=== PATIENT | female | born 1970 | race Asian ===

== ENCOUNTER → 2016-10-23 | Day surgery (SDC) | payer BC ==
[~2016-10-23] MED LIST: BACTRIM DS TABL1 TA1 PO; CLARITIN10 MG; FISH OIL 1,0001 CA2 PO; GLUCOSAMINE500 M1 PO; NORVASC10 MG PO; PYRIDIUM PO; SINGULAIR PO; ZYRTEC10 M1 PO
--- NOTE | ~2016-10-23 | OR ---
Unit #: [id number] #: [id number] Patient: AASHISH LAU [id number] [address] [place], [place] [address] [id number] O MR#: [id number] NAME: AASHISH LAU. ROOM: Date of Procedure: 10/23/2016 Admission Date: 10/23/2016 Surgeon: Aryan Freitas M.D. : 1970 Attending Physician: Aryan Freitas M.D. Primary Care Physician: Elzbieta Liu M.D. OPERATIVE REPORT PRIMARY CARE PHYSICIAN Elzbieta Liu M.D. PREOPERATIVE DIAGNOSES The patient has come for colorectal cancer screening. She has family history of colon cancer in her mother and two of her brothers. PROCEDURES PERFORMED Colonoscopy and polypectomy. POSTOPERATIVE DIAGNOSES 1. Single sessile polyp in the proximal descending colon. The latter was removed using snare polypectomy. The polyp was about 4 to 5 mm in size. 2. Rest of examination up to cecum and terminal ileum was normal. The quality of the prep was excellent. No additional polyps nor any diverticula or hemorrhoids were seen. RECOMMENDATIONS Follow up results of polyp histology and repeat colonoscopy in 5 years. SEDATION USED MAC. DESCRIPTION OF PROCEDURE Following detailed explanation of the potential risks and complications of a colonoscopy, namely perforation, bleeding, and complications related to sedation, the patient was brought to GI lab and laid in the left lateral decubitus position. A digital rectal examination was performed, which was normal. Lubricated tip of the Olympus video colonoscope was inserted through the anus and advanced under direct vision. The scope was advanced and passed up to sigmoid into descending colon. No diverticula were noticed in this area. The scope tip was then navigated all the way up to cecum with visualization of the ileocecal valve and the appendiceal orifice. Preparation was excellent with good visualization and photodocumentation was obtained. Last several inches of terminal ileum also visualized after intubation of the ileocecal valve and appeared normal. Successive segments of the colonic mucosa were examined upon withdrawal and appeared unremarkable except for a single sessile polyp in the proximal descending colon. The latter was about 4 to 5 mm in size. It was removed using snare polypectomy. The polyp was retrieved and sent for histology. No additional polyps were noted. The patient did not have any diverticulosis nor any hemorrhoids. The scope was then withdrawn. Unit #: [id number] #: [id number] Patient: AASHISH LAU The patient returned to recovery area. She tolerated the procedure without any postprocedure complications. Dictated by... Raisa Gallegos/mindy TD: 10/23/2016 23:13 JOB #: [id number] CC: Elzbieta Liu M.D. OPERATIVE REPORT Page 1 of 1 X Aryan Freitas MD X PROCEDURE OPERATIVE NOTE
== END | disposition home or self-care (01) ==
LOC: COPS 06:33
PROVIDERS: Internal Medicine Gastroenterology
PROC: 0DBM8ZX Excision of Descending Colon, Via Natural or Artificial Opening Endoscopic, Diagnostic (ICD-10-PCS; principal; 2016-10-23 08:00)
DX: Z12.11 Encounter for screening for malignant neoplasm of colon (principal); D12.4 Benign neoplasm of descending colon; Z80.0 Family history of malignant neoplasm of digestive organs; I10 Essential (primary) hypertension; Z79.899 Other long term (current) drug therapy; Z90.710 Acquired absence of both cervix and uterus
CPT/HCPCS: 88305

== ENCOUNTER → 2016-10-24 | Outpatient (CLI) | payer BC ==
--- NOTE | ~2016-10-24 | MY11 ---
[facility] A Service of [facility] RADIOLOGY TEXT RESULTS PATIENT: AASHISH LAU LOCATION: [facility] : [birth year] UNIT #: [id number] AGE: [address]: Elzbieta Liu MD SEX: F ORDER DR: [id number] [facility] [address]. [place], [place] [address] [id number] O MR#: [id number] Acc #: [id number] NAME: AASHISH LAU. : 1970 SEX: F STUDY DATE/TIME: 10/24/2016 14:42 UNIT: [facility] ROOM: STUDY DESCRIPTION: MY Mammogram Screening Dig Danny Attending Physician: Elzbieta Liu M.D. Referring Physician: Elzbieta Liu M.D. Ordering Physician: Elzbieta Liu M.D. Primary Care Physician: Elzbieta Liu M.D. MEDICAL IMAGING REPORT This report is preliminary unless electronic signature is present EXAM Digital screening mammogram. DATE OF EXAM 10/24/2016 LOCATION [facility]. HISTORY 46-year-old woman, no risk elevation. Annual screen. COMPARISON Mammograms date to 05/18/2009, with most recent 04/29/2015. FINDINGS Digital imaging of each breast was completed utilizing standard craniocaudal and mediolateral-oblique projections. Review and interpretation of digital mammograms include a second review in conjunction with FDA-approved CAD device. There is an overall increase in the parenchymal presentation bilaterally with a generalized fibronodular pattern in each breast. There are no breast masses and I see no asymmetry in the parenchymal presentation. There are no suspicious microcalcifications and I see no architectural disturbance. IMPRESSION Benign mammogram. One-year followup recommended. Patients over the age of 40 are entered into a reminder system with target due date for the next mammogram. A result letter will also be sent to the patient. BIRADS: 2 Benign Finding. [facility] A Service [facility] RADIOLOGY TEXT RESULTS PATIENT: AASHISH LAU LOCATION: [facility] : 66 UNIT #: [id number] AGE: [address]: Elzbieta Liu MD SEX: F ORDER DR: Dictated by... Jonathan Motley M.D. THIS IS AN ELECTRONICALLY VERIFIED REPORT Jonathan Motley M.D. at 10/25/2016 10:53 AM UNA/cornel TD: 10/24/2016 17:21 JOB #: [id number] MEDICAL IMAGING REPORT Page 1 of 1 COPY
== END | disposition home or self-care (01) ==
LOC: CWCC 14:07
DX: Z12.31 Encounter for screening mammogram for malignant neoplasm of breast (principal)
CPT/HCPCS: G0202